=== PATIENT | male | born 1985 ===

== ENCOUNTER 2021-12-30 07:15 | Emergency (ER) | payer BC, SELFPAY ==
[2021-12-30 09:46] LABS: SARS-CoV-2 NAA Rapid Test Not Detected (NotDetected)
== END 2021-12-30 08:21 | disposition home or self-care (01) ==
LOC: ERS 07:15
DX: J39.8 Other specified diseases of upper respiratory tract (principal); B97.89 Other viral agents as the cause of diseases classified elsewhere; Z20.822 Contact with and (suspected) exposure to COVID-19
CPT/HCPCS: 99283